=== PATIENT | male | born 1990 | race Caucasian/White ===

== ENCOUNTER 2016-06-01 20:29 | Emergency (ER) | payer OTHER ==
[~2016-06-01] VITALS: Ht 193 cm; Wt 99.8 kg
[2016-06-01 21:00] VITALS: BP 138/83
== END 2016-06-01 23:22 | disposition left against medical advice (07) ==
LOC: ER 20:34
DX: S91.111A Laceration without foreign body of right great toe without damage to nail, initial encounter (principal); Z53.21 Procedure and treatment not carried out due to patient leaving prior to being seen by health care provider; X58.XXXA Exposure to other specified factors, initial encounter; Y93.89 Activity, other specified; Y92.89 Other specified places as the place of occurrence of the external cause; Y99.8 Other external cause status